=== PATIENT | male | born 1990 | race Caucasian/White ===

== ENCOUNTER 2017-10-24 13:03 | Emergency (ER) | payer BC ==
[2017-10-24] MEDS ORDERED: Ketorolac 60 MG/2 ML SDV IM ONE (14:19)
[2017-10-24] MEDS ORDERED: Ketorolac 30 MG/ML SDV IVPUSH ONE (14:20)
[2017-10-24] MEDS ORDERED: Sodium Chloride 0.9% 1,000 ML IV ONE (14:20)
--- NOTE | 2017-10-24 14:58 | EDM.PDOC ---
ED HPI GENERAL MEDICAL PROBLEM - General Chief Complaint: General Stated Complaint: FLU LIKE SYMPTOMS Time Seen by Provider: 10/24/17 13:58 Source of Information: Reports: Patient History Limitations: Reports: No Limitations - History of Present Illness INITIAL COMMENTS - FREE TEXT/NARRATIVE: HISTORY AND PHYSICAL: History of present illness: Patient is a 27-year-old male who presents to the emergency room today with complaints of frontal headache, body aches and fatigue. He denies any fever, chills, chest pain, shortness of breath or cough. He denies any abdominal pain, nausea, vomiting, diarrhea, constipation or dysuria. Denies any previous history of migraine headaches. Has not been around anyone who has been recently sick. No recent travel. Review of systems: As per history of present illness and below otherwise all systems reviewed and negative. Past medical history: As per history of present illness and as reviewed below otherwise noncontributory. Surgical history: As per history of present illness and as reviewed below otherwise noncontributory. Social history: No reported history of drug or alcohol abuse. Family history: As per history of present illness and as reviewed below otherwise noncontributory. Physical exam: General: Well-developed and well-nourished 27-year-old male. Alert and oriented. Nontoxic appearing and in no acute distress. HEENT: Atraumatic, normocephalic, pupils equal and reactive bilaterally, negative for conjunctival pallor or scleral icterus, mucous membranes moist, throat clear, neck supple, nontender, trachea midline. No maxillary sinus tenderness. No drooling or trismus noted. No meningeal signs Lungs: Clear to auscultation, breath sounds equal bilaterally, chest nontender. Heart: S1S2, regular rate and rhythm without overt murmur Abdomen: Soft, nondistended, nontender. Negative for masses or hepatosplenomegaly. Negative for costovertebral tenderness. Pelvis: Stable nontender. Genitourinary: Deferred. Rectal: Deferred. Skin: Intact, warm, dry. No lesions or rashes noted. Extremities: Atraumatic, negative for cords or calf pain. Neurovascular unremarkable. Neuro: Awake, alert, oriented. Cranial nerves II through XII unremarkable. Cerebellum unremarkable. Motor and sensory unremarkable throughout. Exam nonfocal. Notes: Patient is describing his headache like a sinus type headache. Denies any photophobia or out of phobia. Physical examination is within normal limits. I did offer him some IV medications for his headache (would require a motorcoach driver), but he does not have a ride home. We'll do IV fluids, Toradol. Routine lab work completed and within normal limits. Discharged to home with supportive care measures. Denies any further questions or concerns at this time. Diagnostics: CBC, CMP Therapeutics: IV fluids, toradol Impression: Sinus headache Plan: 1. Rest for the next 24 hours. 2. May use Tylenol and/or ibuprofen as needed for pain management. 3. Follow up with your primary care director in the next 1-2 days. Return to the ED as needed and as discussed. Definitive disposition and diagnosis as appropriate pending reevaluation and review of above. Onset: Today Headache Pain Score (Numeric/FACES): 8 - Related Data Allergies Allergy/AdvReac Type Severity Reaction Status Date / Time No Known Allergies Allergy Verified 10/24/17 14:32 Home Meds: Home Meds . [No Known Home Meds] 10/24/17 [History] Past Medical History - Past Health History Medical/Surgical History: Denies Medical/Surgical History Social & Family History - Family History Family Medical History: Noncontributory - Tobacco Use Smoking Status *Q: Never Smoker - Recreational Drug Use Recreational Drug Use: No ED ROS GENERAL - Review of Systems Review Of Systems: ROS reveals no pertinent complaints other than HPI. ED EXAM, GENERAL - Physical Exam Exam: See Below (See dictation) Course - Vital Signs Last Recorded V/S: Last Vital Signs Temp 98.0 F 10/24/17 14:32 Pulse 87 10/24/17 14:32 Resp 18 10/24/17 14:32 BP 109/59 L 10/24/17 14:32 Pulse Ox 97 10/24/17 14:32 - Orders/Labs/Meds Orders: Active Orders 24 hr Category Date Time Status COMPREHENSIVE METABOLIC PN,CMP [CHEM] Stat Lab 10/24/17 14:33 Received Sodium Chloride 0.9% [Normal Saline] 1,000 ml Med 10/24/17 14:20 Active IV STAT Medication Orders Sodium Chloride (Normal Saline) 1,000 mls @ 999 mls/hr IV STAT ONE Stop: 10/24/17 15:20 Last Admin: 10/24/17 14:43 Dose: 999 mls/hr Labs: Laboratory Tests 10/24/17 Range/Units 14:33 WBC 5.36 (4.0-11.0) K/uL RBC 4.79 (4.50-5.90) M/uL Hgb 14.5 (13.0-17.0) g/dL Hct 42.3 (38.0-50.0) % MCV 88.3 (80.0-98.0) fL MCH 30.3 (27.0-32.0) pg MCHC 34.3 (31.0-37.0) g/dL RDW Std Deviation 40.4 (28.0-62.0) fl RDW Coeff of Jarrod 13 (11.0-15.0) % Plt Count 152 (150-400) K/uL MPV 9.80 (7.40-12.00) fL Neut % (Auto) 67.7 (48.0-80.0) % Lymph % (Auto) 17.0 (16.0-40.0) % Boyd % (Auto) 14.7 (0.0-15.0) % Eos % (Auto) 0.2 (0.0-7.0) % Baso % (Auto) 0.4 (0.0-1.5) % Neut # (Auto) 3.6 (1.4-5.7) K/uL Lymph # (Auto) 0.9 (0.6-2.4) K/uL Boyd # (Auto) 0.8 (0.0-0.8) K/uL Eos # (Auto) 0.0 (0.0-0.7) K/uL Baso # (Auto) 0.0 (0.0-0.1) K/uL Nucleated RBC % 0.0 /100WBC Nucleated RBCs # 0 K/uL Meds: Medications Generic Name Dose Route Start Last Admin Trade Name Freq PRN Reason Stop Dose Admin Sodium Chloride 1,000 mls @ 999 mls/hr 10/24/17 14:20 10/24/17 14:43 Normal Saline IV 10/24/17 15:20 999 mls/hr STAT ONE Administration Discontinued Medications Generic Name Dose Route Start Last Admin Trade Name Freq PRN Reason Stop Dose Admin Ketorolac Tromethamine 60 mg 06/16/18 14:19 Toradol IM 10/24/17 14:20 ONETIME ONE Ketorolac Tromethamine 30 mg 10/24/17 14:20 10/24/17 14:44 Toradol IVPUSH 10/24/17 14:21 30 mg ONETIME ONE Administration Departure - Departure Time of Disposition: 14:58 Disposition: Home, Self-Care 01 Clinical Impression: Headache Qualifiers: Headache type: unspecified Headache chronicity pattern: acute headache Intractability: not intractable Qualified Code(s): R51 - Headache - Discharge Information Instructions: Sinus Headache, [id number] Referrals: PCP,None [Primary Care Provider] - Forms: ED Department Discharge Additional Instructions: The following information is given to patients seen in the emergency department who are being discharged to home. This information is to outline your options for follow-up care. We provide all patients seen in our emergency department with a follow-up referral. The need for follow-up, as well as the timing and circumstances, are variable depending upon the specifics of your emergency department visit. If you don't have a primary care physician on staff, we will provide you with a referral. We always advise you to contact your personal physician following an emergency department visit to inform them of the circumstance of the visit and for follow-up with them and/or the need for any referrals to a consulting specialist. The emergency department will also refer you to a specialist when appropriate. This referral assures that you have the opportunity for follow-up care with a specialist. All of these measure are taken in an effort to provide you with optimal care, which includes your follow-up. Under all circumstances we always encourage you to contact your private physician who remains a resource for coordinating your care. When calling for follow-up care, please make the office aware that this follow-up is from your recent emergency room visit. If for any reason you are refused follow-up, please contact the [facility] at and asked to speak to the emergency department charge nurse. [facility] [address] [place] [id number] 1. Rest for the next 24 hours. 2. May use Tylenol and/or ibuprofen as needed for pain management. 3. Follow up with your primary care director in the next 1-2 days. Return to the ED as needed and as discussed. - My Orders Last 24 Hours: My Active Orders 10/24/17 14:20 Sodium Chloride 0.9% [Normal Saline] 1,000 ml IV STAT 10/24/17 14:33 COMPREHENSIVE METABOLIC PN,CMP [CHEM] Stat - Assessment/Plan Last 24 Hours: My Active Orders 10/24/17 14:20 Sodium Chloride 0.9% [Normal Saline] 1,000 ml IV STAT 10/24/17 14:33 COMPREHENSIVE METABOLIC PN,CMP [CHEM] Stat
[2017-10-24 15:01] LABS: CHLORIDE,CL 102 mmol/L (98-107); SODIUM,NA 138 mmol/L (136-148)
== END 2017-10-24 15:43 | disposition home or self-care (01) ==
LOC: MW.ED 13:03
DX: R51 Headache (principal)
CPT/HCPCS: 36415; 80053; 85025; 96361; 96374; 99284; J1885; J7040